=== PATIENT | female | born 1985 | race African-American/Black ===

== ENCOUNTER 2017-02-20 07:53 | Emergency (ER) | payer OTHER ==
[~2017-02-20] VITALS: Ht 172.7 cm; Wt 98.9 kg
[~2017-02-20 07:53] MED LIST: ANTIVERT25 MG PO; AUGMENTIN 875875 MG PO; AZITHROMYCIN 2250 MG PO; CIPRO500 MG PO; DEPO-PROVER400 MG/ML IM; FLAGYL500 MG PO; FLEET ENEMA118 ML RC; FLONASE 0.05%50 MCG NASAL; MECLIZINE 25 MG25 M1 PO; MEDROLDOSEPACK PO; MIRALAX255 GM PO; NOHOMEMEDICATIONS; NYSTATIN 100,0015 G1 TP; TRINATE TABLET1 TAB PO; ZOFRAN 4 MG ORAL4 M1 DIS; ZOFRAN ODT4 MG PO; ZOFRAN4 MG PO; ZPAK PO
[2017-02-20] MEDS ORDERED: MECLIZINE HCL25 MG PO (08:45)
[2017-02-20 08:55] VITALS: BP 130/92
== END 2017-02-20 08:58 | disposition home or self-care (01) ==
LOC: M.ERS 07:53
DX: R42 Dizziness and giddiness (principal); Z88.2 Allergy status to sulfonamides

== ENCOUNTER 2017-04-13 09:49 | Emergency (ER) | payer OTHER, MEDICAID ==
[~2017-04-13] VITALS: Ht 175.3 cm; Wt 90.7 kg
[~2017-04-13 09:49] MED LIST changes: +MECLIZINE HCL25 MG PO
[2017-04-13 10:04] VITALS: BP 131/89
[2017-04-13] MEDS ORDERED: IBUPROFEN 800800 M1 PO (10:15)
[2017-04-13] MEDS ORDERED: TESSALON PERLE100 MG PO (10:15)
[2017-04-13] MEDS ORDERED: VENTOLIN HFA 1818 GM INH (10:15)
== END 2017-04-13 10:46 | disposition home or self-care (01) ==
LOC: M.ERS 09:49
DX: J11.1 Influenza due to unidentified influenza virus with other respiratory manifestations (principal); F10.99 Alcohol use, unspecified with unspecified alcohol-induced disorder; Z88.2 Allergy status to sulfonamides